=== PATIENT | female | born 1955 | race Caucasian/White ===

== ENCOUNTER → 2019-11-21 12:25 | Outpatient (CLI) | payer MEDICARE, OTHER, SELFPAY ==
--- NOTE | 2019-11-21 | PATH_ITS ---
Note [facility] Accession Number: [id number] TESTS RESULT FLAG UNITS REF RANGE LAB Clinician Provided Cytology Information No. of containers..01 Other (Miscellaneous) No. of containers..00 Previously Prepared Cytology Slide LEFT THYROID NODULE DIAGNOSIS: 01 LEFT THYROID NODULE NEGATIVE FOR MALIGNANT CELLS. [place] CATEGORY II. SPECIMEN CONSISTS OF BENIGN FOLLICULAR CELLS AND SCANT COLLOID CONSISTENT WITH A BENIGN FOLLICULAR NODULE. Pathologist ICD10: 01 E04.1 01 THYROID GLAND: Right Lobe; 4.2 x 2.5 x 1.6 cm, volume 8.8 cc. Normal background echotexture. Right Lobe Nodules: Inferior pole nodule, Isoechoic with circumscribed nodules and minimally cystic. Low suspicion. 1.7 x 1.4 x 2.2 cm. Consider FNA secondary to size. Left Lobe. 4.4 x 2.2 x 2.3 cm, volume 11.6 cc. Normal background echotexture. Left Lobe Nodules: Mid to Inferior pole nodule, circumscribed, Isoechoic,mostly solid with central cystic spaces. Low suspicion 2.0 x 2.1 x 3.1 cm consider FNA secondary to size. Isthmus: 0.4 cm AP, Normal background echotexture. Isthmic Nodules: Right-sided nodule. Circumscribed margins, Isoecholc, scattered cystic foci. Low suspicion, 0.5 x 0.7 x 1.0 cm LYMPH NODES: NO adenopathy demonstrated in the central or lateral compartment. OTHER: None. IMPRESSION: Bilateral, Dominant thyroid lobe nodules, consider bilateral FNA. Management recommendations are based on 2015 [place] [employer] Management Guidelines for Adult Patients with Thyroid Nodules and Differentiated Thyroid Cancer. 01 Susie Wadsworth MD, Pathologist NPI- [id number] Hai Beasley, Active Directory Specialist ([facility]) 01 30 CC, RED, CLEAR RECIEVED: IN CYTOLYT WITH 5 ALCOHOL FIXED AND 5 QUICK STAINED SLIDES ALSO 1 RNA VIAL WAS RECEIVED FOR FURTHER TESTING. /[facility] 11/24/2019 0904 Local FLAG LEGEND: L-Low Normal,H-High Normal,LL-Alert Low,HH-Alert High <-Panic Low,>-Panic High,A-Abnormal,AA-Critical Abnormal Performed at: 01 =Z [facility] [address] [place] [address] [address], [place] [address] Vance Lanier MD, Performed at: 01 [facility] [address] [place] [address] [address], [place], [place] [id number] MD Vance Lanier MD Phone: [phone]
--- NOTE | 2019-11-21 | PATH_ITS ---
Note [facility] Accession Number: [id number] TESTS RESULT FLAG UNITS REF RANGE LAB Clinician Provided Cytology Information No. of containers..01 Other (Miscellaneous) No. of containers..00 Previously Prepared Cytology Slide 01 RIGHT THYROID NODULE DIAGNOSIS: 01 RIGHT THYROID NODULE NEGATIVE FOR MALIGNANT CELLS. [place] CATEGORY II. SPECIMEN CONSISTS OF BENIGN FOLLICULAR CELLS AND ABUNDANT COLLOD CONSISTENT WITH A COLLOID NODULE. Pathologist ICD10: 01 E04.1 01 THYROID GLAND: Right Lobe; 4.2 x 2.5 x 1.6 cm, volume 8.8 cc. Normal background echotexture. Right Lobe Nodules: Inferior pole nodule, Isoechoic with circumscribed nodules and minimally cystic. Low suspicion. 1.7 x 1.4 x 2.2 cm. Consider FNA secondary to size. Left Lobe. 4.4 x 2.2 x 2.3 cm, volume 11.6 cc. Normal background echotexture. Left Lobe Nodules: Mid to Inferior pole nodule, circumscribed, Isoechoic,mostly solid with central cystic spaces. Low suspicion 2.0 x 2.1 x 3.1 cm consider FNA secondary to size. Isthmus: 0.4 cm AP, Normal background echotexture. Isthmic Nodules: Right-sided nodule. Circumscribed margins, Isoecholc, scattered cystic foci. Low suspicion, 0.5 x 0.7 x 1.0 cm LYMPH NODES: NO adenopathy demonstrated in the central or lateral compartment. OTHER: None. IMPRESSION: Bilateral, Dominant thyroid lobe nodules, consider bilateral FNA. Management recommendations are based on 2015 [place] [employer] Management Guidelines for Adult Patients with Thyroid Nodules and Differentiated Thyroid Cancer. 01 Susie Wadsworth MD, Pathologist NPI- [id number] Ralf Corey, Baseball Inspector And Repairer ([facility]) 01 30 CC, PINK, CLEAR RECIEVED: IN CYTOLYT WITH 5 ALCOHOL FIXED AND 5 QUICK STAINED SLIDES ALSO 1 RNA VIAL WAS RECEIVED FOR FURTHER TESTING. /[facility] 11/24/2019 0904 Local FLAG LEGEND: L-Low Normal,H-High Normal,LL-Alert Low,HH-Alert High <-Panic Low,>-Panic High,A-Abnormal,AA-Critical Abnormal Performed at: 01 =Z [facility] [address] [place] [address] [address], [place] [address] Vance Lanier MD, Performed at: 01 [facility] [address] [place] [address] [address], [place], [place] [id number] MD Vanec Lanier MD Phone: [phone]
--- NOTE | 2019-11-21 | DI.US.S_ITS ---
PROCEDURE: US FINE NEEDLE ASPIRATION INDICATIONS: NONTOXIC BILATERAL THYROID NODULES TECHNIQUE: The indications, alternatives, benefits, risks, and complications of the procedure were explained to the patient. Written informed consent was obtained and placed in the chart. The thyroid region was examined sonographically and a site was chosen for ultrasound guided percutaneous sampling. The skin was prepared and draped in the usual fashion, and anesthetized with 1% lidocaine infiltrated from the skin down to the thyroid gland. Multiple passes were then performed, with contents emptied into an appropriate pathology specimen container. A bandage was applied to the area of access at completion of the study. COMPARISON: None. FINDINGS: Location(s) of lesion(s) sampled: 1 on the right and one on the left [place]: 25 gauge hypodermic needles. Number of passes: 5 through each thyroid nodule, one on the right and one on the left. Medications: 1% lidocaine for local anaesthesia. Complications: None. IMPRESSION: Successful ultrasound-guided thyroid nodule fine needle aspiration bilaterally, with cytology results pending. Please see chart below for management recommendations based on cytology results. The samples from the 2 nodules were provided in separate pathology department specimen containers for subsequent cytologic analysis. [facility] ReportingRecommendationsNon-diagnostic* Repeat US-guided FNA, with on-site cytology evaluation if possible. * Repeated non-diagnostic nodules without high suspicion US features: close observation vs surgical consult. * Consider surgery if nodule has high suspicion US features, grows >20% in 2 dimensions on followup, or patient has clinical risk factors for malignancy. Benign* If nodule has high suspicion US features: repeat US and FNA within 12 months. * If nodule has low to intermediate suspicion US features: repeat US at 12-24 months. If nodule grows (20% increase in at least 2 dimensions, with minimal increase of 2 mm or >50% change in volume), or development of new suspicious US features, then repeat FNA or continue followup. * If nodule has very low suspicion US features: followup US at >24 months. Atypia of undetermined significance, follicular lesion of undetermined significanceRepeat FNA, molecular testing, followup US, or surgical consult.Follicular neoplasm, suspicious for follicular neoplasmSurgical consult; also consider molecular testing. Suspicious for malignancySurgical consult.MalignantSurgical consult. Dictated by: Negro Santos M.D. on 11/21/2019 at 15:28 Approved by: Negro Santos M.D. on 11/21/2019 at 15:33
== END ==
PROVIDERS: PCP Physician Assistant; Referring Provider Surgery; Visit Provider Surgery
DX: E04.2 Nontoxic multinodular goiter (principal)
CPT/HCPCS: 10005; 10006

== ENCOUNTER → 2024-07-08 07:43 | Outpatient (CLI) | payer MEDICARE, OTHER, SELFPAY ==
--- NOTE | 2024-07-08 07:46 | DI.RAD.S_ITS ---
PROCEDURE: XR LUMBAR SPINE 2-3V INDICATIONS: acute sciatica/diff walking LBP midline overuse TECHNIQUE: 3 views of the lumbar spine were acquired. COMPARISON: None. FINDINGS: Five non rib-bearing lumbar vertebrae are present. The vertebral body heights are preserved. Multilevel intervertebral disc height loss, severe at L4-L5 and L5-S1. Mild hypertrophy of the spinous processes, most conspicuous at L5-S1. Multilevel moderate-severe facet arthropathy, most conspicuous at L4-L5 and L5-S1. Mild bilateral sacroiliac joint osteoarthritis. Right upper quadrant surgical clips. Pelvic phleboliths. IMPRESSION: Multilevel lumbar osteoarthrosis, most conspicuous at L4-L5 and L5-S1. Dictated by: Rafy Quezada M.D. on 07/08/2024 at 12:12 Approved by: Rafy Quezada M.D. on 07/08/2024 at 12:13
== END ==
PROVIDERS: PCP Nurse Practitioner Family; Referring Provider Student in an Organized Health Care Education/Training Program; Visit Provider Student in an Organized Health Care Education/Training Program
DX: M54.40 Lumbago with sciatica, unspecified side (principal); M47.816 Spondylosis without myelopathy or radiculopathy, lumbar region; M47.817 Spondylosis without myelopathy or radiculopathy, lumbosacral region
CPT/HCPCS: 72100